=== PATIENT | female | born 1935 | race African-American/Black ===

== ENCOUNTER 2017-08-15 17:41 | Emergency (ER) | payer BC, MEDICARE, OTHER ==
[~2017-08-15] VITALS: Ht 154.9 cm; Wt 82.0 kg
[~2017-08-15 17:41] MED LIST: CALCIUM CHLORIDE 1GM/10ML SYR IV ONE; EPINEPHRINE 0.1MG/ML (1:10,000) 10ML SYR ONE; GLYBURIDE; PREDNISONE; PRO AIR; SODIUM BICARBONATE 7.5% 0.9 MEQ/ML 50ML SYR IV ONE
[2017-08-15 17:43] VITALS: BP 0/0
== END 2017-08-15 19:11 | disposition expired ==
LOC: ER 17:51
DX: I46.9 Cardiac arrest, cause unspecified (principal); Z88.0 Allergy status to penicillin
CPT/HCPCS: 31500; 86703; 92950; 99285; J3490